=== PATIENT | male | born 1960 | race Caucasian/White ===

== ENCOUNTER 2016-11-08 06:36 | Day surgery (SDC) | payer OTHER ==
[~2016-11-08] VITALS: Ht 188 cm; Wt 99.7 kg
[~2016-11-08 06:36] MED LIST: HYZAAR 100-21 TABLET PO; PRAVASTATIN SOD40 MG PO
[2016-11-08 07:17] VITALS: BP 136/91
[2016-11-08] MEDS ORDERED: PERCOCET 5/31 TABLET PO (10:28)
[2016-11-08 12:25] VITALS: BP 128/76
[2016-11-08 13:15] VITALS: BP 118/73
== END 2016-11-08 13:29 | disposition home or self-care (01) ==
LOC: SDC 06:36
PROC: 0YQ60ZZ Repair Left Inguinal Region, Open Approach (ICD-10-PCS; principal; 2016-11-08)
DX: K40.90 Unilateral inguinal hernia, without obstruction or gangrene, not specified as recurrent (principal); I10 Essential (primary) hypertension; E78.5 Hyperlipidemia, unspecified
CPT/HCPCS: 93005; C1781; J0690; J1170; J2250; J3010

== ENCOUNTER → 2018-04-25 | Outpatient (CLI) | payer OTHER ==
[~2018-04-25] MED LIST changes: +PERCOCET 5/31 TABLET PO
== END | disposition home or self-care (01) ==
LOC: CDC 12:17
DX: Z01.810 Encounter for preprocedural cardiovascular examination (principal); K40.90 Unilateral inguinal hernia, without obstruction or gangrene, not specified as recurrent
CPT/HCPCS: 93000

== ENCOUNTER 2018-05-15 05:32 | Day surgery (SDC) | payer OTHER ==
[~2018-05-15] VITALS: Ht 188 cm; Wt 99.7 kg
[~2018-05-15 05:32] MED LIST changes: +COZAAR100 MG PO; +DOXYCYCLINE HYC50 M2 PO; -HYZAAR 100-21 TABLET PO
[2018-05-15 05:58] VITALS: BP 155/79
[2018-05-15] MEDS ORDERED: NORCO 5/3251 TABLET PO (08:48)
[2018-05-15 10:04] VITALS: BP 139/78
[2018-05-15 11:35] VITALS: BP 130/72
[2018-05-15 13:00] VITALS: BP 131/80
== END 2018-05-15 13:05 | disposition home or self-care (01) ==
LOC: SDC 05:32
PROC: 0YU50JZ Supplement Right Inguinal Region with Synthetic Substitute, Open Approach (ICD-10-PCS; principal; 2018-05-15)
DX: K40.90 Unilateral inguinal hernia, without obstruction or gangrene, not specified as recurrent (principal); E66.9 Obesity, unspecified; Z68.29 Body mass index [BMI] 29.0-29.9, adult; E78.5 Hyperlipidemia, unspecified
CPT/HCPCS: C1781; J0330; J0690; J1100; J2175; J2250; J2405; J2710; J3010; J7643